=== PATIENT | male | born 1965 | race Caucasian/White ===

== ENCOUNTER 2018-06-01 09:02 | Emergency (ER) | payer SELFPAY ==
[~2018-06-01] VITALS: Ht 185.4 cm; Wt 90.9 kg
[2018-06-01 09:11] VITALS: BP 158/100; Ht 185.4 cm; Wt 90.9 kg
[2018-06-01] MEDS ORDERED: PROTONIX20 MG PO (09:13)
[2018-06-01] MEDS ORDERED: NORVASC10 MG PO (09:13)
[2018-06-01] MEDS ORDERED: IBUPROFEN200 MG PO (09:14)
[2018-06-01] MEDS ORDERED: ADVAIR HFA [SP]12 GM INH (09:14)
[2018-06-01] MEDS ORDERED: ELIQUIS5 MG PO (09:14)
[2018-06-01] MEDS ORDERED: VENTOLIN HFA18 GM INJ (09:14)
[2018-06-01] MEDS ORDERED: COZAAR50 MG PO (09:15)
[2018-06-01] MEDS ORDERED: FLOMAX0.4 MG PO (09:15)
[2018-06-01] MEDS ORDERED: TORADOL10 MG PO (10:29)
== END 2018-06-01 10:59 | disposition home or self-care (01) ==
LOC: D.ER 09:02
DX: M16.12 Unilateral primary osteoarthritis, left hip (principal); I10 Essential (primary) hypertension; J44.9 Chronic obstructive pulmonary disease, unspecified; K21.9 Gastro-esophageal reflux disease without esophagitis; F17.200 Nicotine dependence, unspecified, uncomplicated